=== PATIENT | female | born 1970 ===

== ENCOUNTER 2018-05-25 08:25 | Emergency (ER) | payer BC, SELFPAY ==
[2018-05-25] MEDS ORDERED: Cyclobenzaprine 10 MG TAB ONE (09:25)
== END 2018-05-25 09:34 | disposition home or self-care (01) ==
LOC: ERS 08:25
DX: T14.8XXA Other injury of unspecified body region, initial encounter (principal); V49.9XXA Car occupant (driver) (passenger) injured in unspecified traffic accident, initial encounter
CPT/HCPCS: 99283